=== PATIENT | female | born 1995 | race African-American/Black ===

== ENCOUNTER 2018-09-02 22:14 | Emergency (ER) | payer MEDICAID, OTHER ==
--- NOTE | 2018-09-02 23:04 | RAD ---
TWO VIEW CHEST: 09/02/18 PROVIDED CLINICAL HISTORY: Cough. FINDINGS: Comparison 03/28/11. The cardiac and mediastinal silhouette is within normal limits. The lungs appear clear. No pleural fl uid or pneumothorax apparent. IMPRESSION: No evidence for an acute cardiopulmonary process. POS: [facility]
--- NOTE | 2018-09-06 05:53 | PQF ---
[facility] POST DISCHARGE CLINICAL DOCUMENTATION IMPROVEMENT CLARIFICATION FORM l Todays Date: 09/04/18 l Patients Name WILMA SALTER l l Admit Date 09/01/18 l Disch Date 09/01/18 Machine Former Name [email or web address] To be completed by Machine Former: Present Clinical Indicators - Signs / Symptoms Results and Location in Medical Record [ ] Documentation of: [ ] [ ] Documentation of: [ ] [ ] Documentation of: [ ] [ ] Documentation of: [ ] [ ] Risks [ ] [ ] [ ] Treatment [ ] BRONCHITIS MISSING SPECIFICITY FOR BRONCHITIS WHETHER ACUTE OR CHRONIC PLEASE CLARIFY. [ ] [ ] To be completed by Alex Avila DO, [place] The documentation in this patients record requires clarification to ensure coding compliance and accuracy. Check the appropriate box and include in your discharge summary. [ ] [ ] [ ] [ ] Please check this box if this does not apply to this patient [ ] Unable to determine [ ] Other diagnosis: Review the following information and exercise your independent professional judgment in responding to the clarification. Based upon the clinical findings, risk factors, and treatment, please clarify if you are treating one of the above probable or suspected diagnoses. Physician Signature: Date Time MTDD
== END 2018-09-03 00:07 | disposition home or self-care (01) ==
LOC: ERS 22:14
DX: J20.9 Acute bronchitis, unspecified (principal)
CPT/HCPCS: 71046

== ENCOUNTER 2019-08-20 09:12 | Emergency (ER) | payer OTHER | END 2019-08-20 09:38 | disposition home or self-care (01) | LOC: ERS 09:12 | DX: J10.1 Influenza due to other identified influenza virus with other respiratory manifestations (principal); B34.9 Viral infection, unspecified; I10 Essential (primary) hypertension | CPT/HCPCS: 87804; 99283 ==

== ENCOUNTER 2021-10-23 14:53 | Emergency (ER) | payer OTHER, MEDICAID ==
[2021-10-23] MEDS ORDERED: Acetaminophen 500 MG TAB ONE (17:16)
[2021-10-24 14:32] LABS: SARS-CoV-2 PCR by NAA Not Detected (NotDetected)
== END 2021-10-23 18:25 | disposition home or self-care (01) ==
LOC: ERS 14:53
DX: B34.9 Viral infection, unspecified (principal); Z20.822 Contact with and (suspected) exposure to COVID-19; I10 Essential (primary) hypertension
CPT/HCPCS: 87804; 99283; U0003; U0005